=== PATIENT | female | born 2000 | race Caucasian/White ===

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

== ENCOUNTER 2018-01-17 18:43 | Emergency (ER) | payer BC, OTHER ==
[~2018-01-17] VITALS: Ht 165.1 cm; Wt 59.9 kg
[2018-01-17 19:01] VITALS: TEMP 37; Ht 165.1 cm; Wt 59.9 kg
--- NOTE | 2018-01-17 19:49 | EMERGENCY ROOM VISIT NOTE ---
History Report prepared by Ramon: Socorro Wolf Under the Supervision of: Dr. Juan Luis Horta M.D. First contact with patient: 19:36 Chief Complaint: ALLERGIC REACTION Stated Complaint: RASH SPREADING OVER BODY, NUMB THROAT/LIPS Nursing Triage Summary: pt placed on tamiflu saturday for possible flu, rash developed 2 days ago, she stopped medication yesterday History of Present Illness The patient is a 17 year old female who presents to the Emergency Room with complaints of an allergic reaction beginning a couple of days port captain. She states that a couple days ago she noticed a slight rash on her stomach but did not think anything of it. She notes this morning it had spread all across her stomach and to her legs and back and was worse. She was placed on Tamiflu 4 days port captain. She is currently taking control and CellCept for almost 8 weeks. The patient has a sore throat and it feels "weird to swallow." She also has some slight numb throat and lips. She denies any abdominal pain, chest pain , SOB, or any fevers. Her LMNP was 3 weeks ago but denies any chance of . Source of History: patient Onset: a couple days port captain Position: other (global) Quality: other (allergic reaction) Timing: worsening Associated Symptoms: + numbness (lips and throat), No fevers, No chest pain , No SOB, No abdominal pain Review of Systems See HPI for pertinent positives & negatives. A total of 10 systems reviewed and were otherwise negative. Past Medical & Surgical Medical Problems: (1) Near syncope Old medical records were reviewed. Nurse's notes were reviewed and I agree with. Autoimmune hepatitis on CellCept Social History Smoking Status: Never Smoker Housing Status: lives with roommate Occupation Status: [employer] student Current/Historical Medications Scheduled Prednisone (Prednisone), 50 MG PO DAILY Allergies Coded Allergies: Penicillins (Unverified Allergy, Unknown, RASH, 07/11/17) Physical Exam Vital Signs Date Time Temp Pulse Resp B/P (MAP) Pulse Ox O2 Delivery O2 Flow Rate FiO2 01/17/18 21:24 87 16 122/71 98 01/17/18 20:47 76 16 124/63 98 Room Air 01/17/18 19:01 37.0 79 18 125/70 99 Room Air Physical Exam General: Non-ill appearing young female in no acute distress. HEENT: Normal cephalic atraumatic. Pupils are equal round and reactive to light. Extraocular movements are intact. Oropharynx is pink with moist mucous membranes. No swelling, no lesions in the mouth. Neck: Supple with a midline trachea. No meningeal signs or stiffness, no JVD or bruits. No Stridor. Chest: Clear to auscultation bilaterally. No wheezes or rhonchi. No increased work of breathing. Heart: regular rate and rhythm. Abdomen: Soft nontender, nondistended without rebound guarding or rigidity. Extremities: No cyanosis clubbing or edema. No calf tenderness or assymetry Spine/Back. Non tender to palpation. No CVA tenderness Skin: Faint circular rash on her body mostly on the abdomen and chest. Does not involve the palm, soles, or mucus membranes. Not vasculitic. Easily blanches. Neurologic exam: Cranial nerves two through 12 are intact. Motor and sensation are intact and symmetrical throughout. Medical Decision & Procedures Laboratory Results 01/17/18 19:55 Red Blood Count 4.26, Mean Corpuscular Volume 89.0, Mean Corpuscular Hemoglobin 31.0, Mean Corpuscular Hemoglobin Concent 34.8, Mean Platelet Volume 10.1 01/17/18 19:55 Test 01/17/18 19:55 White Blood Count 4.66 K/uL (4.8-10.8) Red Blood Count 4.26 M/uL (4.2-5.4) Hemoglobin 13.2 g/dL (12.0-16.0) Hematocrit 37.9 % (37-47) Mean Corpuscular Volume 89.0 fL (80-100) Mean Corpuscular Hemoglobin 31.0 pg (25-34) Mean Corpuscular Hemoglobin Concent 34.8 g/dl (32-36) Platelet Count 147 K/uL (130-400) Mean Platelet Volume 10.1 fL (7.4-10.4) RDW Standard Deviation 44.3 fL (36.4-46.3) RDW Coefficient of Variation 13.6 % (11.5-14.5) Neutrophils % (Manual) 55.6 % Lymphocytes % (Manual) 27.0 % Variant Lymphocytes % (manual) 12.2 % Monocytes % (Manual) 4.3 % Eosinophils % (Manual) 0.9 % Neutrophils # (Manual) 2.59 K/uL (1.4-6.5) Total Absolute Neutrophils 2.59 K/uL (1.4-6.5) Lymphocytes # (Manual) 1.26 K/uL (1.2-3.4) Absolute Variant Lymphocytes 0.57 K/uL Total Absolute Lymphocytes 1.83 K/uL (1.2-3.4) Monocytes # (Manual) 0.20 K/uL (0.11-0.59) Eosinophils # (Manual) 0.04 K/uL (0-0.5) Hyposegmented Neutrophils 2+ Anion Gap 6.0 mmol/L (3-11) Est Creatinine Clear Calc Drug Dose 98.1 ml/min Estimated GFR () 118.5 Estimated GFR (Non- 102.2 BUN/Creatinine Ratio 13.4 (10-20) Calcium Level 8.8 mg/dl (8.5-10.1) Total Bilirubin 0.4 mg/dl (0.2-1) Direct Bilirubin mg/dl (0-0.2) Aspartate Amino Transf (AST/SGOT) U/L (15-37) Alanine Aminotransferase (ALT/SGPT) 227 U/L (12-78) Alkaline Phosphatase 87 U/L (45-117) Total Protein 8.5 gm/dl (6.4-8.2) Albumin 3.5 gm/dl (3.4-5.0) Lipase 247 U/L (73-393) Human Chorionic Gonadotropin, Qual NEG (NEG) Laboratory studies as stated above per my review. Medications Administered Medications (Trade) Dose Ordered Sig/José Miguel Route Start Time Stop Time Status Last Admin Dose Admin Prednisone (PredniSONE TAB) 60 mg NOW STAT PO 01/17/18 21:11 01/17/18 21:12 DC 01/17/18 21:23 60 MG ED Course 1927: Past medical records reviewed. The patient was evaluated in room B6, and a complete history and physical examination were performed. 2099: I checked on the patient at this time. She was resting comfortably. 2110: Prednisone 60 mg PO 2111: Upon reevaluation, the patient is content and agreeable. I discussed the results and treatment plan with her. She verbalized agreement of the treatment plan. The patient was discharged home. Medical Decision Differential diagnosis: Etiologies such as allergic reaction, viral illness, infection, as well as others were entertained. This patient comes in describing what above. She looks well on exam and she has no swelling the mouth lips or tongue. she has no GI symptoms. she is not short of breath and has no stridor. She has no evidence of anaphylaxis. She has a faint rash mostly on her torso. It does not involve the palms or soles or mucous membranes. It blanches and is non-vasculitic. Given her autoimmune hepatitis and the fact that she is on CellCept, I did check blood work. Her white count is not significantly elevated. She has some mild elevation of her ALT at 227. AST did hemolyzed offered to redraw but she would prefer to wait and she is to get this rechecked on Saturday. I had our ED pharmacist review her meds Tamiflu can cause a rash and it is possible is related this or viral illness. I think is less likely related to CellCept with autoimmune hepatitis. I will put her on prednisone in case it is an allergic component. She was given 50 mg of prednisone p.o. here as well as a prescription for 50 for the next 3 days. At this point she is essentially asymptomatic and looks well on exam and does feel comfortable going home. I encouraged to return if: she has worsening symptoms, shortness of breath, fever orchills, any new problems or concerns. She was happy the plan discharged to home. Medication Reconcilliation Current Medication List: was personally reviewed by me Blood Pressure Screening Patient's blood pressure: Normal blood pressure Blood pressure disposition: Did not require urgent referral Impression Primary Impression: Rash Scribe Attestation The scribe's documentation has been prepared under my direction and personally reviewed by me in its entirety. I confirm that the note above accurately reflects all work, treatment, procedures, and medical decision making performed by me. Departure Information Dispostion Home / Self-Care Prescriptions Prednisone (Prednisone) 50 Mg Tab 50 MG PO DAILY, #4 TAB Prov: Juan Luis Horta M.D. 01/17/18 Referrals No Doctor, Assigned (PCP) Forms HOME CARE DOCUMENTATION FORM, IMPORTANT VISIT INFORMATION Patient Instructions My [facility] Additional Instructions Rest. Drink plenty of fluids. Use prednisone 50 mg a day once a day for 4 more days May use Benydryl 25 mg every 8 hours as needed for itching or rash Benydryl may make you drowsy-Do not take before drinking, driving, or working Return if: Worsening rash, fever or chills, shortness of breath, any new problems or concerns Your ALT is mildly elevated at 227 Please get your blood work rechecked on Saturday and follow-up with your liver doctor
[2018-01-17 20:12] LABS: HEMATOCRIT 37.9 % (37-47); HEMOGLOBIN 13.2 g/dL (12.0-16.0); MEAN CORPUSCULAR HGB CONC 34.8 g/dl (32-36); MEAN PLATELET VOLUME 10.1 fL (7.4-10.4); PLATELET COUNT 147 K/uL (130-400); RED CELL DISTRIBUTION WIDTH CV 13.6 % (11.5-14.5); RED CELL DISTRIBUTION WIDTH SD 44.3 fL (36.4-46.3); WHITE BLOOD COUNT 4.66 K/uL (4.8-10.8)
[2018-01-17 20:58] LABS: ALBUMIN 3.5 gm/dl (3.4-5.0); CALCIUM 8.8 mg/dl (8.5-10.1); CREATININE 0.83 mg/dl (0.60-1.20); TOTAL PROTEIN 8.5 gm/dl (6.4-8.2)
[2018-01-17] MEDS ORDERED: PRED50TA PO (21:16)
[2018-01-17 21:24] VITALS: BP 122/71; PULSE 87; O2SAT 98
== END 2018-01-17 21:24 | disposition home or self-care (01) ==
LOC: C.EDB 18:45
DX: R21 Rash and other nonspecific skin eruption (principal)